=== PATIENT | female | born 1990 | race Caucasian/White ===

== ENCOUNTER 2017-05-01 15:27 | Emergency (ER) | payer OTHER ==
[~2017-05-01] VITALS: Ht 162.6 cm; Wt 108.9 kg
[2017-05-01] MEDS ORDERED: LUTERA1 EACH PO (16:02)
--- NOTE | 2017-05-11 13:19 | NUR ---
CHW called the number listed [phone] and left a voicemail for the patient. Suggested on the VM that it is urgent that we get in contact with her. Patient left AMA at ED visit and removed her own PICC Line.
--- NOTE | 2017-05-11 13:27 | NUR ---
CHW spoke with [facility] in [place] and the ED confirmed patient was seen on 05/01/17 and left their facility AMA and then came back on 05/02/17 and stayed and received treatment. Patient does not return phone calls and or respond to voicemails left. PICC line was removed was flushed at [facility] in [place] per RN at ED.
== END 2017-05-01 19:50 | disposition home or self-care (01) ==
LOC: ED 15:27
DX: G44.209 Tension-type headache, unspecified, not intractable (principal); F17.200 Nicotine dependence, unspecified, uncomplicated; Z88.8 Allergy status to other drugs, medicaments and biological substances; Z88.5 Allergy status to narcotic agent; Z79.899 Other long term (current) drug therapy
CPT/HCPCS: 96361; 96365; 96375; 96376; 99282; J1885; J2765; J3475; J7030